=== PATIENT | female | born 1950 | race Caucasian/White ===

== ENCOUNTER 2018-12-04 12:41 | Outpatient (REF) | payer MEDICARE, SELFPAY ==
[2018-12-04 21:40] LABS: Calculated LDL 105; Cholesterol 210 mg/dL (50-200); Glucose 91 mg/dL (70-100); HDL Cholesterol 87 mg/dL (40-60); TSH (W/Ref FT4) 2.79 uIU/mL (0.358-3.74); Triglyceride 93 mg/dL (30-150)
== END 2018-12-04 13:01 ==
LOC: NCHCN 12:41
PROVIDERS: PCP Family Medicine; Visit Provider Family Medicine
DX: E07.9 Disorder of thyroid, unspecified (principal); Z13.6 Encounter for screening for cardiovascular disorders; Z13.9 Encounter for screening, unspecified; Z13.1 Encounter for screening for diabetes mellitus; E78.89 Other lipoprotein metabolism disorders
CPT/HCPCS: 80061; 82947; 83721; 84443

== ENCOUNTER 2021-03-25 14:58 | Outpatient (REF) | payer MEDICARE, SELFPAY ==
[2021-03-25 19:01] LABS: Anion Gap 8.5 mmol/L (3-11); BUN 23 mg/dL (7-18); CO2 28.5 mmol/L (21.0-32.0); CREATININE 0.7 mg/dL (0.55-1.02); Calcium 9.3 mg/dL (8.5-10.1); Chloride 106 mmol/L (98-107); Glucose 98 mg/dL (74-106); Potassium 4.2 mmol/L (3.5-5.1); Sodium 143 mmol/L (136-145)
== END 2021-03-25 14:59 | disposition home or self-care (01) ==
LOC: NCHCN 14:58
PROVIDERS: PCP Family Medicine; Visit Provider Family Medicine
DX: I10 Essential (primary) hypertension (principal)
CPT/HCPCS: 80048

== ENCOUNTER 2022-11-17 14:47 | Outpatient (REF) | payer MEDICARE, SELFPAY ==
[2022-11-17 18:55] LABS: BUN 16 mg/dL (7-18); CREATININE 0.8 mg/dL (0.55-1.02); Calcium 8.9 mg/dL (8.5-10.1); Chloride 105 mmol/L (98-107); Estimated GFR 77.27 (mL/min/1.73m2); Glucose 112 mg/dL (74-106); Sodium 139 mmol/L (136-145); TSH (W/Ref FT4) 0.02 uIU/mL (0.36-3.74)
[2022-11-17 19:13] LABS: FREE T4 1.04 ng/dL (0.76-1.46)
== END 2022-11-17 14:48 | disposition home or self-care (01) ==
LOC: NCHCN 14:47
PROVIDERS: PCP Family Medicine; Visit Provider Family Medicine
DX: I10 Essential (primary) hypertension (principal); E04.1 Nontoxic single thyroid nodule
CPT/HCPCS: 80048; 84439; 84443

== ENCOUNTER 2023-01-05 02:47 | Outpatient (CLI) | payer MEDICARE, SELFPAY ==
--- NOTE | 2023-01-05 | DI.US_ITS ---
Exam(s) US THYROID EXAM: US THYROID CLINICAL HISTORY: LOW TSH,E23.0,RT THYROID NODULE,E04.1. TECHNIQUE: Ultrasound thyroid performed using standard protocol. COMPARISON: No exams were available for comparison FINDINGS: This patient was sent for this examination after apparent discovery of right thyroid region nodule on routine physical examination. She did not present to her physician with a self detected abnormality . The thyroid gland exhibits normal size. There are no significant nodules in the left lobe nor in the isthmus. In the right thyroid lobe there is a subtle area of heterogeneous tissue-possible nodule. However, I prefer to discuss this as a nodule as it appears to extend beyond the posterior aspect of the right lobe. Is difficult to delineate true size of this nodule as its margin is indistinct with the apparent glan d. However, this nodule measures approximately 2 cm cephalocaudal by 1.2 cm wide by 1.9 cm AP. Posterio r aspect appears to extend beyond the posterior border of the gland. Composition: Solid-2 points Echogenicity: Isoechoic to surrounding parenchyma-1 point Shape: Wider than taller-0 points Margin: Ype-pfjdkhi-yus appears to extend beyond the gland border-3 points Echogenic Foci: -0 points Total Points for this nodule: 6 ACR Ti-Rads Category: TR4 This TR4 nodule requires ultrasound-guided FNA. ISTHMUS: there are no nodules in the isthmus. LEFT THYROID LOBE: Normal size. No obvious nodules. LYMPH NODES: Small benign-appearing lymph nodes. No adenopathy.. IMPRESSION: 1. There is a concerning finding in the right thyroid lobe which is either an area of heterogeneous t issue or very subtle nodule measuring approximately 20 x 12 x 19 mm and appearing to exhibit extensio n beyond the posterior border of the thyroid gland. This is a TR4 nodule and requires ultrasound-jo ded FNA biopsy 2. There is no significant lymphadenopathy. DATA REPOSITORY:
== END 2023-01-05 03:07 ==
LOC: DI 02:47
PROVIDERS: PCP Family Medicine; Visit Provider Family Medicine
DX: E04.1 Nontoxic single thyroid nodule (principal); E23.0 Hypopituitarism
CPT/HCPCS: 76536

== ENCOUNTER → 2023-02-28 02:38 | Outpatient (CLI) | payer MEDICARE, SELFPAY ==
--- NOTE | 2023-02-28 07:30 | DI.US_ITS ---
Exam(s) US NEEDLE LOCAL OTHER WO RAD EXAM: Thyroid nodule,ultrasound guided biopsy,e04.1 COMPARISON: No exams were available for comparison TECHNIQUE: Ultrasound performed using standard protocol. FINDINGS: Sonography was provided for Dr. Hernández during the performance of a ultrasound-guided thyroid nodule biopsy. Please refer to the procedure report for complete details. DATA REPOSITORY:
--- NOTE | 2023-02-28 11:25 | PAPNONF_PTH ---
PATIENT: Wanda Smith LOC: [facility] U#:[id number] AGE/SX: 75/F ROOM: RE02/28/[address]: Miguel Hernández MD : [id number] BED: DIS: SPEC #: [id number] RECD: 02/28/23 12:50 STATUS: ESTEFANI REYuan #: [id number] ASPEN: 02/28/23 11:[address]: Miguel Hernández DEPT: [facility] Cytology RECD BY: Lynne Cook ENTERED: 02/28/23 12:51 SP TYPE: ZELDA SHELTON DR: Ann Guillaume V Tissues: 1 - BODY FLUID CYTO-FINE NEEDLE [facility]IRATE[facility] Procedures: BODY FLUID CYTO-FINE NEEDLE ASPIRATE[facility] Comments: [id number] (PATH FNA CONSULT) (REFRIGERATED)
--- NOTE | 2023-02-28 11:43 | W.PROCNOTE ---
Date of service: 02/28/23 Time of Service: 11:43 Procedure Note Date of procedure: 02/28/23 Procedure: Ultrasound-guided FNA, right thyroid nodule, pathology present Procedure Diagnosis: Right thyroid nodule Procedure Indications: Patient has a right-sided thyroid nodule with possible extracapsular extension. Options were explained to the patient regarding further management. She elected for above procedure. Consent was signed prior to the procedure. Procedure Description: The patient was positioned in a supine position with her neck slightly extended. Ultrasound was used to localize the area of concern in the right thyroid lobe. The patient was then prepped and draped in appropriate fashion and 1% lidocaine with 1/100,000 epinephrine was injected in the skin and subcutaneous tissues overlying the thyroid. A 25-gauge needle was then passed directly into the area of concern using ultrasound guidance to ensure that we were within the area of concern. Specimen was handed to Dr. Zee who verified adequate cellularity. Additional passes were made for potential Afirma testing. After ensuring adequate hemostasis a sterile dressing was applied and the patient was allowed to sit and then stand. She noted no discomfort. Her vital signs remained stable. She will remove the bandage in 2 hours. She will not apply a secondary bandage. She will call with any signs of infection. She will use Tylenol or ibuprofen or Aleve for pain control. She will call if she does not hear from me within 1 week with regard to pathology results. She had no further questions. She is comfortable with this plan.
== END ==
PROVIDERS: PCP Family Medicine; Visit Provider Otolaryngology
DX: E04.1 Nontoxic single thyroid nodule (principal)
CPT/HCPCS: 10005; 76942; 88104

== ENCOUNTER → 2023-11-28 02:07 | Outpatient (CLI) | payer MEDICARE, SELFPAY ==
--- NOTE | 2023-11-28 08:00 | DI.US_ITS ---
Exam(s) US THYROID EXAM: US THYROID CLINICAL HISTORY: Right thyroid nodule, assess for change, benign bx,e04.1. TECHNIQUE: Ultrasound thyroid performed using standard protocol. COMPARISON: US US THYROID from 01/05/2023 US US NEEDLE LOCAL OTHER WO RAD from 02/28/2023 FINDINGS: This patient underwent ultrasound-guided FNA of the right thyroid finding on 02/28/2023, negative for malignancy according to the pathology report The appearance of the right lobe and subtle area of heterogeneous tissue-possible nodule is unchanged from the prior ultrasound examination of 01/05/2023. This possible nodule has not increased in size. Posterior to this finding is another finding measuring 0.9 x 0.7 x 0.9 cm. It is again difficult to d etermine if this is part of the same nodule or if it is a parathyroid gland. There are again no significant findings in the left lobe nor in the isthmus. IMPRESSION: Stable appearance without significant change compared to the images of 01/05/2023. Pathology report from right thyroid nodule FNA performed 02/28/2023 was negative for malignancy (feat ures consistent with benign follicular nodule). DATA REPOSITORY:
== END ==
PROVIDERS: PCP Family Medicine; Visit Provider Otolaryngology
DX: E04.1 Nontoxic single thyroid nodule (principal)
CPT/HCPCS: 76536

== ENCOUNTER 2023-12-07 15:41 | Outpatient (REF) | payer MEDICARE, SELFPAY ==
[2023-12-07 19:35] LABS: BUN 16 mg/dL (7-18); CREATININE 0.8 mg/dL (0.55-1.02); Calcium 8.9 mg/dL (8.5-10.1); Chloride 104 mmol/L (98-107); Estimated GFR 76.79 (mL/min/1.73m2); Glucose 97 mg/dL (74-106); Potassium 4.2 mmol/L (3.5-5.1); Sodium 141 mmol/L (136-145); TSH (W/Ref FT4) 1.17 uIU/mL (0.36-3.74)
== END 2023-12-07 15:42 | disposition home or self-care (01) ==
LOC: NCHCN 15:41
PROVIDERS: PCP Family Medicine; Visit Provider Family Medicine
DX: I10 Essential (primary) hypertension (principal); E04.1 Nontoxic single thyroid nodule; Z00.00 Encounter for general adult medical examination without abnormal findings
CPT/HCPCS: 80048; 84443